=== PATIENT | female | born 1995 ===

== ENCOUNTER 2018-08-23 07:05 | Inpatient (IN) | payer OTHER ==
[2018-08-23] MEDS: Lactated Ringer's 1,000 ML IV ONE ×2 (07:30→08:30)
[2018-08-23 07:43] VITALS: BMI 31.6
[2018-08-23] MEDS ORDERED: Oxytocin 30 UNIT in NS 500 ml 30 UNITS/500 ML BAG IV ONE (07:52)
[2018-08-23] MEDS ORDERED: OXYTOCIN/0.9 % NS 20 UNIT/1,000 ML BAG IV SCH ×2 (08:00→17:07)
[2018-08-23] MEDS ORDERED: Lactated Ringer's 1,000 ML IV SCH ×2 (08:00→17:07)
[2018-08-23 08:16] LABS: BASO % 0.2 % (0.0-2.0); EOS % 0.5 % (0.0-4.0); HEMOGLOBIN 12.7 g/dL (12.0-16.0); LYMPH # 1.7 K/uL (1.0-4.3); LYMPH % 16.3 % (20.0-40.0); MEAN CELL VOLUME 87.5 fl (81.0-99.0); MEAN CORPUSCULAR HEMOGLOBIN 30.3 pg (27.0-31.0); MEAN CORPUSCULAR HGB CONC 34.6 g/dL (33.0-37.0); MEAN PLATELET VOLUME 8.7 fl (7.2-11.7); MONO # 0.9 K/uL (0.0-0.8); MONO % 8.5 % (0.0-10.0); NEUT # 7.6 K/uL (1.8-7.0); NEUT % 74.5 % (50.0-75.0); NRBC % 0.2 % (0.0-0.0); RBC 4.2 Mil/uL (3.80-5.20); RED CELL DISTRIBUTION WIDTH 14.8 % (11.5-14.5); WHITE BLOOD COUNT 10.2 K/uL (4.8-10.8)
[2018-08-23] MEDS ORDERED: Bupivacaine HCl 0.5% PF (30 ml) Inj ONE ×2 (08:31→11:19)
[2018-08-23] MEDS ORDERED: Fentanyl/Bupivacaine HCl 250 ML EPI ONE (09:00)
--- NOTE | 2018-08-23 09:13 | OBADHP ---
Datetime: 08/23/2018 08:00 Admit Comment, IP Provider: 23 y/o , 39.1 weeks based on US with MICHELL of 08/29/18 presents to [facility] with LOF and CTx. Patient reports gush of fluid coming out since 6:20 am today and since than she is having CTx Q3-4 mins. Unsure about FM since than but reports good FM prior to ROM. Denies VB. Denies any other symptoms. Denies headache, vision changes, CP, SOB. Pranatal care: Dr. Connelly, H/O elevated BP but normal in office. VSS normal today. ObHx: G1 current preg PMHx: Denies PSHx: Denies Allergies: NKDA Meds: PNVs F/H: HTN and DM in parents Social Hx: Denies Alcohol/drugs/smoking PE Gen: in mild-moderate distress during CTx Chest: RRR, S1S2 present Lungs: CTAB Abd: Gravid, Lower abdominal pressure and tenderness LE: Trace pedal edema SVE: 4/100%/-3 A/P: 23 y/o , 39.1 weeks based on US with MICHELL of 08/29/18 presents to [facility] with LOF and CTx. - Active labor - GBS Negative, Rubella immune, HIV NR, RPR Neg, HbsAg Neg - CTx Q3-4 on toco, EFM, Cervix - 4/100%/-3 - LR 1L 999 and 125ml/hr - Anesthesia consult for epidural - Monitor for cervical change Case discussed with Dr. Rubio Arevalo, PGY1 Addendum by Dr. Bergeron: I have evaluated the patient independently and I agree with the above FHR - Baseline A Provider: 140 Membranes, Provider: Ruptured Comments, ACOG Physical Exam: Gen: in mild-moderate distress during CTx Chest: RRR, S1S2 present Lungs: CTAB Abd: Gravid, Lower abdominal pressure and tenderness LE: Trace pedal edema SVE: 4/100%/-3 IP Hx Assessment: The History has been Reviewed and is Current Vital Signs Provider: Reviewed IP Chief Complaint: Uterine contractions; Suspected ruptured membranes; Maternal discomfort NICHD Variability Prov Fetus A: Moderate 6-25bpm NICHD Accel Fetus A IP Provider: [id number] FHR Category Provider Fetus A: Category I NICHD Decel Fetus A IP Provider: Variable Dilatation, Provider: 4 Effacement, Provider: 100 Station, Provider: -3 EGA AdmitDate IP: 39.1 IP Adm Impression: Term, intrauterine IP Admit Plan: Admit to unit; Initiate labor protocol Datetime: 08/23/2018 07:46 Contraction Comments Provider: Regular Q3
[2018-08-23 09:23] VITALS: TEMP 98.1
[2018-08-23] MEDS ORDERED: Lidocaine 1% Inj (20ml) ONE (10:35)
[2018-08-23] MEDS ORDERED: ceFAZolin 2 GM in Sodium Chloride 0.9% 100 ML IVPB ONE (11:15)
[2018-08-23] MEDS ORDERED: Morphine 1 mg/ml preservative-free Inj(Duramorph) ONE (11:19)
[2018-08-23] MEDS ORDERED: Oxycodone/Acetaminophen 5/325 mg Tab PO PRN ×3 (12:12→17:07)
--- NOTE | 2018-08-23 13:01 | RAD ---
Date of service: 08/23/2018 HISTORY: stat c section COMPARISON: None. TECHNIQUE: 1 view obtained. FINDINGS: BOWEL: Normal. No obstruction. No free air. BONES: Normal. OTHER FINDINGS: Serpiginous tubing, according to the b2b sales executive related to an epidural catheter. IMPRESSION: No evidence of retained sponge or intra-abdominal/peritoneal or pelvic lap sponge. Additional benign and/or incidental findings described above.
[2018-08-23] MEDS ORDERED: Simethicone 80 mg Chewtab PO SCH (16:00)
[2018-08-23] MEDS: Simethicone 80 mg Chewtab PO SCH (22:30)
[2018-08-24] MEDS: Simethicone 80 mg Chewtab PO SCH ×5 (04:07→21:46)
[2018-08-24 06:46] LABS: MEAN CELL VOLUME 87.9 fl (81.0-99.0); MEAN CORPUSCULAR HEMOGLOBIN 30.2 pg (27.0-31.0); MEAN CORPUSCULAR HGB CONC 34.4 g/dL (33.0-37.0); RBC 3.64 Mil/uL (3.80-5.20); RED CELL DISTRIBUTION WIDTH 15.2 % (11.5-14.5); WHITE BLOOD COUNT 12.3 K/uL (4.8-10.8)
[2018-08-24] MEDS: Multivitamin With Minerals Tab PO SCH (08:34)
[2018-08-24] MEDS: Oxycodone/Acetaminophen 5/325 mg Tab PO PRN ×2 (08:34→21:45)
[2018-08-24] MEDS ORDERED: Multivitamin With Minerals Tab PO SCH (09:00)
--- NOTE | 2018-08-24 11:37 | OBDS ---
DELIVERY PERSONNEL Delivery Doctor: Katrin Perez MD Scrub Nurse: Jane Dillon Developer Relations Manager: Mandie Hernandes RN Anesthesiologist: MD rosemary Resident: Benji ahn MATERNAL INFORMATION Delivery Anesthesia: Epidural Medications in Delivery: pitocin Estimated Blood Loss (ml): 800 Placenta Cultured: Yes Maternal Complications: None Provider Comments: Patient with recurrent variable decelerations with increasing depth and width. P atient in process of pushing, but still fairly remote from delivery. Due to severe variable decelerations, decision and recommendation for delivery. Discuss ed with patient the risk, benefits, alternatives of surgery and all patient questions answered. Nkechi ent immediately transferred to operating room. Primary low flap transverse section via Pfannenstiel incision. Patient delivered viable male with Apgars of 8 and 9 at 1 and 5 minutes respectively. Placenta delivered manually. No rmal uterus, normal tubes and ovaries bilaterally. Estimated blood loss 800 cc Fluids 1300 cc lactated Ringer's Urine output 200 cc No complications, patient tolerated procedure well. Refer to dictation. LABOR SUMMARY EDC: 08/29/2018 00:00 No. Babies in Womb: 1 Attempted: No Labor Anesthesia: Epidural LABOR INFORMATION Reason for Induction: Not Applicable Onset of Labor: 08/23/2018 06:30 Complete Dilatation: 08/23/2018 10:50 Oxytocin: N/A Group B Beta Strep: Negative Antibiotics # of Doses: 1 Antibiotics Time of Last Dose: 11:35 Steroids Given: None Reason Steroids Not Administered: Not Applicable MEMBRANES Membranes Rupture Method: Spontaneous Rupture of Membranes: 08/23/2018 06:30 Length of Rupture (hrs): 4.98 Amniotic Fluid Color: Clear Amniotic Fluid Amount: Small Amniotic Fluid Odor: Normal STAGES OF LABOR Stage 1 hrs: 4 Stage 1 min: 20 Stage 2 hrs: 0 Stage 2 min: 39 Stage 3 hrs: 0 Stage 3 min: 1 Total Time in Labor hrs: 5 Total Time in Labor min: 0 CSECTION DELIVERY Primary Indication: Nonreassuring Status Other Primary Indication: Worsening category 2 heart tracing CSection Urgency: Emergency CSection Incidence: Primary CSection Incision: Lower Uterine Transverse Uterine Closure: Double-layer closure BABY A INFORMATION Infant Delivery Date/Time: 08/23/2018 11:29 Method of Delivery: Born in Route : No : N/A Forceps: N/A Vacuum Extraction: N/A Shoulder Dystocia : No SHOULDER DYSTOCIA BABY A Delivery Date/Time: 08/23/2018 11:29 PRESENTATION/POSITION BABY A Presentation: Cephalic Cephalic Presentation: Vertex Vertex Position: Left Occipital Anterior Breech Presentation: N/A PLACENTA INFORMATION BABY A Placenta Delivery Time : 08/23/2018 11:30 Placenta Method of Delivery: Manual Removal Placenta Status: Delivered SCORES BABY A Heart Rate 1 min: >100 bpm Resp Effort 1 min: Good Cry Reflex Irritability 1 min: Cough or Sneeze or Pulls Away Muscle Tone 1 min: Some Flexion of Extremities Color 1 min: Body [place], Extremities Blue Resuscitation Effort 1 min: Tactile Stimulation; Oxygen SCORE 1 MIN: 8 Heart Rate 5 min: >100 bpm Resp Effort 5 min: Good Cry Reflex Irritability 5 min: Cough or Sneeze or Pulls Away Muscle Tone 5 min: Active Motion Color 5 min: Body [place], Extremities Blue Resuscitation Effort 5 min: Oxygen SCORE 5 MIN: 9 INFORMATION BABY A Gestational Age at Delivery: 39.0 Gestational Status: Term Outcome : Liveborn Infant Condition : Fair Infant Sex: Male IDENTIFICATION/MEDS BABY A ID Band Number: [id number] ID Band Location: Left Leg; Left Arm WEIGHT/LENGTH BABY A Infant Birthweight (gms): 3690 Weight (lb): 8 Weight (oz): 2 Infant Length Inches: 21.00 Infant Length cms: 53.3 CORD INFORMATION BABY A No. Cord Vessels: 3 Nuchal Cord : N/A Cord Blood Taken: N/A Infant Suction: Mouth; Nose
--- NOTE | 2018-08-24 14:35 | OBPPN ---
Datetime: 08/24/2018 14:28 PP Pain Prov: Within normal limits PP Nausea Prov: Denies PP Flatus Prov: Yes PP Breasts Prov: Normal PP Heart Prov: Normal PP Lungs Prov: Normal PP Abdomen/Uterus Prov: Normal PP Lochia Prov: Normal PP Vulva/Perineum Prov: Normal PP CVA Tenderness Prov: Normal PP Extremities Prov: Normal PP Comments Phys Exam Prov: Fundus firm under umbilicus Incision clean/dry/intact PP Impression Prov: Normal progression PP Plan Prov: Continue present management PP Progress Note Prov: Patient denies CP, no SOB, no n/V, tolerating PO diet, ambulating/voiding wel l, mild lochia, ambdominal pain tolerable with meds, no flatus A/P POD #1 1. Continue post op orders 2. PErcocet/Motrin 3. Encourage ambulation and IP PP Procedures: None Vital Signs Provider PP: Reviewed; Within Normal Limits
--- NOTE | 2018-08-24 22:23 | OP ---
PROCEDURE DATE: 08/23/2018 PREOPERATIVE DIAGNOSES: Worsening variable decelerations, category II heart tracing. POSTOPERATIVE DIAGNOSES: Worsening variable decelerations, category II heart tracing. OPERATION PERFORMED: Primary low-flap transverse section via Pfannenstiel incision. OPERATIVE FINDINGS: Viable male with Apgars of 8 and 9 at one and five minutes respectively. Normal uterus, normal tubes and ovaries bilaterally. ESTIMATED BLOOD LOSS: 800 mL. FLUIDS: 1300 mL of lactated Ringer's. URINE OUTPUT: 200 mL of clear urine at the end of procedure. COMPLICATIONS: None. SURGEON: Mckinley Perez MD JEWEL HOLE DRILLER: Dr. Arevalo. ANESTHESIOLOGIST: Dr. Contreras. ANESTHESIA: Epidural. DESCRIPTION OF PROCEDURE: The patient was taken to the operating room where epidural anesthesia was found to be adequate. The patient was prepped and draped in a normal sterile fashion in the dorsal supine position with leftward tilt. A Pfannenstiel skin incision was made with a scalpel. This was carried down through to the underlying layer of fascia with the scalpel. A midline defect was made in the fascial layer with the scalpel. The fascial incision was then extended bilaterally with curved Friedman scissors. The fascial layer was from the underlying rectus muscles both bluntly and sharply with curved Friedman scissors. The rectus muscles were at the midline. The peritoneum was then identified, tented upward with Isha clamps x2, and entered sharply with Metzenbaum scissors. This peritoneal incision was then extended superiorly and inferiorly with good visualization of the urinary bladder. Bladder blade was inserted into the abdomen. The vesicouterine peritoneum was then identified, tented upward with Isha clamps x2, and entered sharply with Metzenbaum scissors. This peritoneal incision was then extended bilaterally with Metzenbaum scissors. The bladder flap was created digitally. The [place] retractor was placed over the urinary bladder. The uterus was incised with the scalpel. The uterine incision was extended bilaterally bluntly. The infant's head was delivered atraumatically. Nose and mouth were suctioned with bulb suction. The remainder of the was delivered without complication. The cord was clamped and cut. The infant was handed off to awaiting pediatricians. Cord gases were collected. Cord blood was collected. The placenta was removed manually. The uterus was cleared of all clots and debris. The uterine incision was repaired with 0 Vicryl in a running, locked fashion. The second layer with the same suture was used to imbricate the first and to obtain excellent hemostasis. Re-inspection of the uterine incision proved hemostasis. The abdomen and pelvis were irrigated with copious amounts of warm normal saline. Re-inspection of the uterine incision proved excellent hemostasis. All instruments were removed from the patient. The peritoneal layer was closed with a running stitch of 2-0 chromic. The rectus muscles were reapproximated in the midline with a running stitch of 2-0 chromic. The fascial layer was closed with a running stitch of 0 Vicryl. Subcutaneous tissue was reapproximated with a running stitch of 3-0 plain. The skin was closed with a subcutaneous stitch of 3-0 Vicryl. The patient tolerated the procedure well. All sponge count, lap count, and needle counts were correct x2. The patient was given 2 g of Ancef just prior to the beginning of the procedure. There were no complications. The patient was taken to the recovery room awake in stable condition. Mckinley Perez MD
[2018-08-25] MEDS: Simethicone 80 mg Chewtab PO SCH ×4 (04:19→22:07)
--- NOTE | 2018-08-25 07:33 | OBPPN ---
Datetime: 08/25/2018 07:29 PP Pain Prov: Within normal limits PP Nausea Prov: Denies PP Flatus Prov: Yes PP BM Prov: Yes PP Abdomen/Uterus Prov: Normal PP Lochia Prov: Normal PP Extremities Prov: Normal PP C/S Incision Prov: Normal PP Progress Prov: Normal PP Comments Phys Exam Prov: Incision: intact w/ steri strips PP Impression Prov: Normal progression PP Plan Prov: Continue present management PP Progress Note Prov: POD 2 s/p section, doing well, breast and bottle feeding, feels jennifer y Encouraged ambulation Vital Signs Provider PP: Reviewed
[2018-08-25] MEDS: Multivitamin With Minerals Tab PO SCH (09:16)
[2018-08-25] MEDS: Oxycodone/Acetaminophen 5/325 mg Tab PO PRN (10:15)
[2018-08-25] MEDS ORDERED: Lansinoh for Breast Feeding Mothers TP ONE (20:56)
[2018-08-26] MEDS: Oxycodone/Acetaminophen 5/325 mg Tab PO PRN (01:34)
[2018-08-26] MEDS: Simethicone 80 mg Chewtab PO SCH ×2 (05:05→09:13)
[2018-08-26] MEDS: Multivitamin With Minerals Tab PO SCH (08:46)
[2018-08-26] MEDS ORDERED: Lansinoh for Breast Feeding Mothers TP SCH (09:00)
--- NOTE | 2018-08-26 10:19 | OBPPN ---
Datetime: 08/26/2018 10:13 PP Pain Prov: Within normal limits PP Nausea Prov: Denies PP Flatus Prov: Yes PP BM Prov: Yes PP Breasts Prov: Normal PP Heart Prov: Normal PP Lungs Prov: Normal PP Abdomen/Uterus Prov: Normal PP Lochia Prov: Normal PP Vulva/Perineum Prov: Not Done PP CVA Tenderness Prov: Normal PP Extremities Prov: Normal PP C/S Incision Prov: Normal PP Progress Prov: Normal PP Impression Prov: Normal progression PP Plan Prov: Discharge PP Progress Note Prov: She feels fine. She had BM yesterday. H/H A: S/P C/S day 3 PLAN: discharge home and follow up in 1-2w Careyain Perez Vital Signs Provider PP: Reviewed; Within Normal Limits
[2018-08-26 18:47] VITALS: BP 131/68; PULSE 87; RESP 20; O2SAT 100
== END 2018-08-26 14:00 | disposition home or self-care (01) | DRG 371 ==
LOC: H.EROB2 07:05 → H.L&D 07:49 → H.OB/GYN 15:44
PROVIDERS: ADMIT Obstetrics & Gynecology; ATTEND Obstetrics & Gynecology
PROC: 10D00Z1 Extraction of Products of Conception, Low, Open Approach (ICD-10-PCS; principal; 2018-08-23)
PROC: 4A1HXCZ Monitoring of Products of Conception, Cardiac Rate, External Approach (ICD-10-PCS; 2018-08-23)
DX: O76 Abnormality in fetal heart rate and rhythm complicating labor and delivery (principal); Z37.0 Single live birth; Z3A.39 39 weeks gestation of pregnancy